=== PATIENT | male | born 1955 | race Caucasian/White ===

== ENCOUNTER 2017-03-07 08:33 | Emergency (ER) | payer OTHER | END 2017-03-07 09:25 | disposition home or self-care (01) | LOC: NAV ERS 08:33 | DX: M54.5 Low back pain (principal); R10.30 Lower abdominal pain, unspecified; F41.9 Anxiety disorder, unspecified; F17.220 Nicotine dependence, chewing tobacco, uncomplicated; Z85.46 Personal history of malignant neoplasm of prostate; Z92.21 Personal history of antineoplastic chemotherapy; Z79.899 Other long term (current) drug therapy; W18.40XA Slipping, tripping and stumbling without falling, unspecified, initial encounter; Y93.01 Activity, walking, marching and hiking; Y92.512 Supermarket, store or market as the place of occurrence of the external cause | CPT/HCPCS: 36415; 84153; 99283 ==

== ENCOUNTER 2017-03-07 09:02 | Outpatient (CLI) | payer OTHER | END 2017-03-07 09:03 | disposition home or self-care (01) | LOC: NAV LAB 09:02 | PROVIDERS: ATTEND Radiology Radiation Oncology | DX: C61 Malignant neoplasm of prostate (principal) | CPT/HCPCS: 36415; 84153 ==

== ENCOUNTER 2021-09-11 15:13 | Outpatient (CLI) | payer BC | END 2021-09-11 15:14 | disposition home or self-care (01) | LOC: NAV RAD 15:13 | PROVIDERS: ATTEND Nurse Practitioner Family | DX: R07.81 Pleurodynia (principal) ==